=== PATIENT | female | born 1995 | race Caucasian/White ===

== ENCOUNTER 2023-01-13 00:33 | Inpatient (IN) | payer BC, SELFPAY ==
[2023-01-13 00:49] VITALS: BMI 24.3
[2023-01-13] MEDS ORDERED: hydrALAZINE 20 MG/ML VIAL SLOW IVP PRN ×3 (01:17→16:49)
[2023-01-13] MEDS ORDERED: Lidocaine 1% (PF) 30 ML VIAL SC PRN (04:51)
[2023-01-13] MEDS ORDERED: Promethazine HCl 25 MG/ML VIAL IM PRN ×2 (04:51→04:52)
[2023-01-13] MEDS ORDERED: Methylergonovine 0.2 MG/ML VIAL IM PRN (04:51)
[2023-01-13] MEDS ORDERED: Ondansetron PF 4 MG/2 ML Vial IVP PRN ×2 (04:51→04:52)
[2023-01-13] MEDS ORDERED: Tranexamic Acid 1,000 MG/10 ML VIAL IVP PRN (04:51)
[2023-01-13] MEDS ORDERED: Carboprost 250 MCG/ML AMP IM PRN (04:51)
[2023-01-13] MEDS ORDERED: Acetaminophen 500 MG TAB PO PRN (04:51)
[2023-01-13] MEDS ORDERED: Misoprostol 200 MCG TAB PR PRN (04:51)
[2023-01-13] MEDS ORDERED: Diphenoxylate HCl/Atropine Tablet PO PRN (04:51)
[2023-01-13] MEDS ORDERED: Docusate 100 MG CAP PO PRN (04:51)
[2023-01-13] MEDS ORDERED: Acetaminophen 325 MG TAB PO PRN ×2 (04:52→17:37)
[2023-01-13] MEDS ORDERED: Lactated Ringer's 500 ML IV PRN (04:52)
[2023-01-13] MEDS ORDERED: Naloxone HCl 0.4 mg/ml Vial IVP PRN ×2 (04:52)
[2023-01-13] MEDS ORDERED: diphenhydrAMINE 50 MG/ML VIAL IVP PRN (04:52)
[2023-01-13] MEDS ORDERED: Moisturizing Cream (Eucerin) 113 GM JAR TOP PRN (04:52)
[2023-01-13] MEDS ORDERED: ePHEDrine Sulfate 50 MG/10 ML VIAL SLOW IVP PRN (04:52)
[2023-01-13] MEDS ORDERED: fentaNYL/Ropivacaine Epidural 100 ML ONE (04:54)
[2023-01-13] MEDS ORDERED: NS w/ Oxytocin 30 units 500 ML IV SCH ×2 (05:00→16:49)
[2023-01-13] MEDS ORDERED: Communication Order-Pharmacy FS SCH (05:00)
[2023-01-13] MEDS ORDERED: fentaNYL 2 mcg/Ropivacaine 0.2% Epidural 100 ML CADD EPIDURAL SCH (05:00)
[2023-01-13] MEDS ORDERED: Lactated Ringer's 1,000 ML IV SCH ×2 (05:00)
[2023-01-13 05:16] LABS: Hemoglobin 13.5 g/dL (12.0-15.5); Mean Corpuscular HGB CONC 35.5 g/dL (32.0-36.0); Mean Corpuscular Hemoglobin 31.3 pg (27.0-33.0); Platelet Count 171 10x3/uL (150-450); RBC Distribution Width 12.9 % (11.5-14.5); Red Blood Cell (RBC) Count 4.32 10x6/uL (3.90-5.03); White Blood Cell (WBC) Count 16.3 10x3/uL (3.5-10.5)
[2023-01-13 05:34] LABS: HBSAg Index 0.17 S/CO (0-0.99); Hep B Surf Ag - L&D Non-Reactive S/CO (NonReactive)
[2023-01-13 05:35] LABS: Syphilis Antibody Nonreactive (Nonreactive); Syphilis Antibody Index 0.05 S/CO (<1.00 Non-Reactive)
[2023-01-13] MEDS ORDERED: Oxytocin 10 UNITS/ML VIAL ONE (13:29)
[2023-01-13 15:31] LABS: pH (Cord, venous) 7.334 (7.250-7.350)
[2023-01-13] MEDS ORDERED: Bisacodyl 10 MG SUPP PR PRN (16:49)
[2023-01-13] MEDS ORDERED: Benzocaine-Menthol 82.5 ML CAN TOP PRN (16:49)
[2023-01-13] MEDS ORDERED: Boostrix 0.5 ML (Tdap) VIAL (>/=7 yrs of age) IM ONE (16:49)
[2023-01-13] MEDS ORDERED: Milk Of Magnesia 30 ML UDCUP PO PRN (16:49)
[2023-01-13] MEDS ORDERED: HYDROcodone/Acetaminophen 5/325 mg Tablet PO PRN ×2 (16:49)
[2023-01-13] MEDS ORDERED: Misoprostol 200 MCG TAB VAG PRN (16:49)
[2023-01-13] MEDS: Ibuprofen 800 MG TAB PO SCH (17:33)
[2023-01-13] MEDS: Docusate 100 MG CAP PO SCH (21:12)
[2023-01-14] MEDS: Ibuprofen 800 MG TAB PO SCH ×3 (00:29→18:50)
[2023-01-14] MEDS: Ferrous Sulfate 325 MG TAB PO SCH ×2 (09:04→18:52)
[2023-01-14] MEDS: Prenatal Vitamin 1 TAB PO SCH (09:04)
[2023-01-14] MEDS: Docusate 100 MG CAP PO SCH ×2 (09:04→18:50)
[2023-01-14 20:40] VITALS: TEMP 98.4
[2023-01-15] MEDS: Ibuprofen 800 MG TAB PO SCH ×2 (03:00→09:27)
[2023-01-15] MEDS: Docusate 100 MG CAP PO SCH (08:00)
[2023-01-15] MEDS: Prenatal Vitamin 1 TAB PO SCH (08:00)
[2023-01-15] MEDS: Ferrous Sulfate 325 MG TAB PO SCH ×2 (08:02→15:40)
[2023-01-15 16:38] VITALS: BP 119/70
== END 2023-01-15 17:00 | disposition home or self-care (01) | DRG 807 ==
LOC: CSHLD/OP 00:33 → CSHLD 04:36 → CSHPP 16:55
PROVIDERS: ADMIT Obstetrics & Gynecology; ATTEND Obstetrics & Gynecology
PROC: 10E0XZZ Delivery of Products of Conception, External Approach (ICD-10-PCS; principal; 2023-01-13)
PROC: 10907ZC Drainage of Amniotic Fluid, Therapeutic from Products of Conception, Via Natural or Artificial Opening (ICD-10-PCS; 2023-01-13)
PROC: 0HQ9XZZ Repair Perineum Skin, External Approach (ICD-10-PCS; 2023-01-13)
DX: O48.0 Post-term pregnancy (principal); Z37.0 Single live birth; Z3A.41 41 weeks gestation of pregnancy; O70.1 Second degree perineal laceration during delivery; Z88.2 Allergy status to sulfonamides; O99.62 Diseases of the digestive system complicating childbirth; K21.9 Gastro-esophageal reflux disease without esophagitis
CPT/HCPCS: 51702; 82805; 85027; 86780; 86850; 86900; 86901; 87340; 99285

== ENCOUNTER 2024-04-16 09:37 | Outpatient (CLI) | payer BC | END 2024-04-16 09:38 | disposition home or self-care (01) | LOC: CSHRAD 09:37 | PROVIDERS: ATTEND Advanced Practice Midwife | DX: J06.9 Acute upper respiratory infection, unspecified (principal) | CPT/HCPCS: 71046 ==